=== PATIENT | female | born 1985 | race Hispanic/Latino ===

== ENCOUNTER → 2024-03-17 | Outpatient (CLI) | payer OTHER, SELFPAY | END | disposition home or self-care (01) | LOC: RAD 15:38 | PROVIDERS: Referring Provider Surgery Plastic and Reconstructive Surgery; Visit Provider Surgery Plastic and Reconstructive Surgery | DX: S62.635A Displaced fracture of distal phalanx of left ring finger, initial encounter for closed fracture (principal); X58.XXXA Exposure to other specified factors, initial encounter | CPT/HCPCS: 73130 ==

== ENCOUNTER 2024-07-06 13:30 | Outpatient (RCR) | payer OTHER, SELFPAY ==
--- NOTE | 2024-05-25 09:53 | HP.OTEVAL_ITS ---
Patient's Visit Information Visit Information Visit Information: CECILIO MARIN is a 38 year old F, referred to Occupational Therapy by NAPOLEON VazquezC, with a diagnosis of left traumatic amp. of RF. Date of Evaluation: 05/24/24 Occupational Therapist: Aruna Sims, YUMI/Annie, CHT Subjective Subjective: This 38 year old female was seen for OT eval with dx left RF complete traumatic transphalangeal amputation. pt arrives with support of a [employer] outreach who is interpreting for her as pt does not speak Faroese. DOI was on . 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 with ADLs and work tasks by d/c Goal:: pt will demo a increase in PIP flexion by 10* or greater to increase pts composite fist by d.c Goal:: pt will report no pain greater than 2/10 with use of left hand with ADLS and Work tasks Goal:: Pt will demo understanding of scar mtg. by end of 2nd session to increase tissue extensibility to limit scar adhesions and allow full tendons function by d/c. Goal:: Pt will demo understanding of joint protection and ergonomics when performing BADLs and IADLs by d/c Pt will demo understanding of adaptive Equipment use to decrease stress on joints to allow pt to perform BADSL and IADLS at ROSALIA level. Rehabilitation General Assessment: pt arrives to session demo with limited tight composite fist- pain with use of left hand with ADLs and work tasks- pt demo need for skilled OT services 1-2x week for 6 weeks 12 visits to decrease pts pain, improve her overall ROM and assist pt in reaching maximal rehab potential. Today therapist ed. pt on PIP blocking- PROM- and place hand hold ex. therapist gave handouts in Korean and pt demo while in clinic ex. well. pt agrees to POC. Rehabilitation Potential: Good Anticipated Interventions Anticipated Interventions: A/AAROM/PROM, Scar Care, Triggerpoint Release, Desensitization, Sensory Retraining, Modalities, Orthoses, Joint Protection/Energy Conservation, Ergonomic Education, Fine Motor Coord/Go, Education re assistive Equipment, Education re Diagnosis and Home Program Visit Plan Frequency: 1-2x /Week Duration: 6 Weeks General Plan: place hand hold to improve ROM PROM and joint mobs to improve end ROM of left RF PIP decrease pain increase strength TEXT: Thank you for the opportunity to evaluate your patient. For Medicare and Medicare HMO plans, please review the plan of care and approve it. It will need to be FAXED BACK to us at [phone] for Medicare purposes. Please let me know if there are questions or concerns regarding this plan of care. Physician Signature: Date:
--- NOTE | 2024-07-06 14:11 | HP.OT.NRP ---
Patient Information Patient Information: CECILIO MARIN was seen in my office for initial evaluation on 05/24/24. The following Plan of Care was established for this patient: POC Established Initial Frequency: 1-2x /Week Initial Duration: 6 Weeks Plan: cont with light strengthening Anticipated Interventions Anticipated Interventions: A/AAROM/PROM, Scar Care, Triggerpoint Release, Desensitization, Sensory Retraining, Modalities, Orthoses, Joint Protection/Energy Conservation, Ergonomic Education, Fine Motor Coord/Go, Education re assistive Equipment, Education re Diagnosis and Home Program Last Seen Last Seen: This patient was last seen in our office 07/06/24. Pertinent comments regarding their Occupational therapy will appear below: This 38 year old female seen by OT with dx of L hand amputation. pt seen throughout POC for ROM strengthening sensation decreased hypersensitivity as well as pain management. pt progressed in POC and today last scheduled session. At this point I will be discontinuing this patient from occupational therapy. I would be happy to see this patient again in the future if found appropriate by the physician. Thank you! Ana Paige
--- NOTE | 2024-07-06 14:12 | HP.OTDCSUM ---
Discharge Summary D/C Summary: It has been my pleasure to treat CECILIO MARIN under orders from RAINER Vazquez, for the diagnosis of left traumatic amp. of RF for a total of 11 visit(s). Please see the following information for a summary of their discharge status. 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 with ADLs and work tasks by d/c L hand 10# Goal:: pt will demo a increase in PIP flexion by 10* or greater to increase pts composite fist by d.c goal met Goal:: pt will report no pain greater than 2/10 with use of left hand with ADLS and Work tasks goal met Goal:: Pt will demo understanding of scar mtg. by end of 2nd session to increase tissue extensibility to limit scar adhesions and allow full tendons function by d/c. goal met Goal:: Pt will demo understanding of joint protection and ergonomics when performing BADLs and IADLs by d/c goal met Pt will demo understanding of adaptive Equipment use to decrease stress on joints to allow pt to perform BADSL and IADLS at ROSALIA level. goal met Plan Plan: cont with light strengthening D/C Information Discharge Comments: This 38 year old female seen by OT with dx of L hand amputation. pt seen throughout POC for ROM strengthening sensation decreased hypersensitivity as well as pain management. pt progressed in POC and today last scheduled session. d/c sentence: If there are questions or concerns regarding this patient's occupational therapy, please fell free to call me at [phone]. Thank you for the referral of this patient. Sincerely, Ana Paige
== END 2024-07-06 19:00 | disposition home or self-care (01) ==
LOC: OT 13:30
PROVIDERS: PCP Orthopaedic Surgery; Visit Provider Nurse Practitioner Family
DX: S68.615D Complete traumatic transphalangeal amputation of left ring finger, subsequent encounter (principal)
CPT/HCPCS: 97110; 97140; 97166; 97530